=== PATIENT | female | born 1995 | race Caucasian/White ===

== ENCOUNTER 2024-08-06 12:35 | Emergency (ER) | payer MEDICAID ==
[2024-08-06] MEDS ORDERED: Ondansetron ODT 4 MG TAB ONE (13:10)
[2024-08-13 13:42] LABS: ALT (SGPT) 20 U/L (8-55); AST (SGOT) 11 U/L (5-34); Albumin 4.1 g/dL (3.5-5.0); Alkaline Phosphatase 62 U/L (40-110); Anion Gap 18 mmol/L (10-20); BUN (Urea Nitrogen) 8 mg/dL (7.0-18.7); Bilirubin, Total 0.3 mg/dL (0.2-1.2); Calc. Creatinine Clearance 0 mL/min (70-130); Calcium 9.4 mg/dL (7.6-10.4); Carbon Dioxide 17 mmol/L (22-29); Chloride 105 mmol/L (98-107); Estimated GFR 119; Globulin 3.8 g/dL (2.4-3.5); Glucose 96 mg/dL (70-105); Potassium 3.7 mmol/L (3.5-5.1); Protein, Total 7.9 g/dL (6.0-8.3); Sodium 136 mmol/L (136-145)
[2024-08-13 13:44] LABS: Hematocrit 42.6 % (36.0-47.0); Hemoglobin 13.6 g/dL (12.0-16.0); Red Blood Cell (RBC) Count 4.42 mill/uL (4.20-5.40); White Blood Cell (WBC) Count 11.2 10x3/uL (4.8-10.8)
[2024-08-13 13:48] LABS: #Lymphocytes 2.8 thou/uL (1.20-3.40); #Monocytes 0.7 thou/uL (0.11-0.59); #Neutrophils 7.5 thou/uL (1.40-6.50); %Basophils 0.8 % (0.0-1.0); %Eosinophils 0.4 % (0.0-10.0); %Lymphocytes 25.2 % (21.0-51.0); %Monocytes 6.5 % (0.0-10.0); %Neutrophils 67.1 % (42.0-75.0); Mean Corpuscular Hemoglobin 30.8 pg (27.0-31.0); Mean Corpuscular Volume 96.3 fl (78.0-98.0); Platelet Count 426 10x3/uL (130-400); RBC Distribution Width 10.9 % (11.5-14.5)
[2024-08-13 13:49] LABS: #Basophils 0.1 thou/uL (0.0-0.2)
== END 2024-08-06 14:27 | disposition short-term general hospital (02) ==
LOC: MADERS 12:35
DX: O20.9 Hemorrhage in early pregnancy, unspecified (principal); Z3A.01 Less than 8 weeks gestation of pregnancy
CPT/HCPCS: 36415; 80053; 84702; 85025; 86900; 86901; 99284; Q0162